=== PATIENT | male | born 1975 | race Caucasian/White ===

== ENCOUNTER 2017-03-09 19:48 | Emergency (ER) | payer BC, OTHER ==
[2017-03-09 20:01] VITALS: BP 142/97
[2017-03-09] MEDS ORDERED: HYDROmorphone 1 MG/ML Syringe IVPUSH ONE (20:21)
[2017-03-09] MEDS ORDERED: Ondansetron 4 MG/2 ML SDV IVPUSH ONE (20:21)
--- NOTE | 2017-03-09 20:29 | EDM.PDOC ---
ED HPI GENERAL MEDICAL PROBLEM - General Chief Complaint: Abdominal Pain Stated Complaint: DIGESTIVE ISSUES Time Seen by Provider: 03/09/17 19:53 Source of Information: Reports: Patient, Family History Limitations: Reports: No Limitations - History of Present Illness INITIAL COMMENTS - FREE TEXT/NARRATIVE: This is a 42-year-old male. 3 days ago onset of some discomfort in the upper abdomen and epigastric region. It seems to have gotten worse and especially today. Yesterday he states he had diarrhea all day but no blood in the diarrhea. Today he doesn't seem to be able to have a bowel movement. He noted today a fever of 102. We will this morning he says he was feeling much better and he had some chicken soup and the pain got much worse. It seemed like the pain comes in waves where it waxes and wanes. When his severe pain he doesn't really have nausea but the nausea seems to be random. He's had no vomiting today. He does have a history of having a workup for pain similar to this about 2 years ago with ultrasound HIDA scans CAT scans scopes and nothing was found. He is a reportable HIDA scan and CT scan done back in 2014 there were apparently normal. Due to the fever but persistent increasing pain and nausea he comes to the ER. He apparently was on vacation and came back 3 days ago where he states he rather drank heavily of alcohol but was not having any problems while he was on vacation. He has no history of pancreatitis. He does have a history however of gastritis and ulcer disease. Middle Abdomen Pain Score (Numeric/FACES): 8 - Related Data Allergies Allergy/AdvReac Type Severity Reaction Status Date / Time No Known Allergies Allergy Verified 03/09/17 19:56 Home Meds: Home Meds Albuterol Sulfate [Proair Respiclick] 1 - 2 puff IH Q4H PRN 06/04/15 [History] Testosterone [Axiron] 1.5 ml TOP ASDIRECTED 09/24/15 [History] ALPRAZolam [Xanax] 0.5 mg PO ASDIRECTED PRN 03/09/17 [History] Acetaminophen [Tylenol Extra Strength] 1,000 mg PO ONCALL PRN 03/09/17 [History] Escitalopram [Lexapro] 10 mg PO DAILY 03/09/17 [History] Pantoprazole Sodium [Protonix] 40 mg PO DAILY #30 suspdr.pkt 03/09/17 [Rx] Past Medical History HEENT History: Reports: Other (See Below) Other HEENT History: seasonal allergies, lip leukplakia, glasses Cardiovascular History: Reports: None Respiratory History: Reports: Asthma Gastrointestinal History: Reports: Other (See Below) Other Gastrointestinal History: elevated LFTs Genitourinary History: Reports: Prostate Disorder, Other (See Below) Other Genitourinary History: hypogonadism, prostate disease 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 Musculoskeletal History: Reports: Other (See Below) Other Musculoskeletal History: L knee pain, R shoulder pain, back strain Neurological History: Reports: None Psychiatric History: Reports: None, Anxiety Hematologic History: Reports: None Immunologic History: Reports: None Oncologic (Cancer) History: Reports: None Dermatologic History: Reports: Other (See Below) Other Dermatologic History: onychomycosis - Infectious Disease History Infectious Disease History: Reports: MRSA - Past Surgical History Head Surgeries/Procedures: Reports: None GI Surgical History: Reports: Colonoscopy, EGD Musculoskeletal Surgical History: Reports: Arthroscopic Knee, Shoulder Surgery Social & Family History - Tobacco Use Smoking Status *Q: Never Smoker Years of Tobacco use: 20 Second Hand Smoke Exposure: No - Alcohol Use Days Per Week of Alcohol Use: 7 Number of Drinks Per Day: 2 Total Drinks Per Week: 14 - Recreational Drug Use Recreational Drug Use: No ED ROS GENERAL - Review of Systems Review Of Systems: See Below Constitutional: Reports: Fever, Chills, Malaise HEENT: Reports: No Symptoms Respiratory: Reports: No Symptoms Cardiovascular: Reports: No Symptoms Endocrine: Reports: No Symptoms GI/Abdominal: Reports: Abdominal Pain, Diarrhea, Decreased Appetite, Nausea. Denies: Black Stool, Bloody Stool, Distension, Vomiting : Denies: Dysuria, Frequency Musculoskeletal: Reports: Other (Mild aching at times) Skin: Reports: No Symptoms Neurological: Reports: No Symptoms Psychiatric: Reports: No Symptoms Hematologic/Lymphatic: Reports: No Symptoms ED EXAM, GI/ABD - Physical Exam Exam: See Below Exam Limited By: No Limitations General Appearance: Alert, WD/WN, No Apparent Distress Ears: Normal External Exam Nose: Normal Inspection Throat/Mouth: Normal Inspection, Normal Lips, Normal Voice Head: Normocephalic Neck: Supple Respiratory/Chest: No Respiratory Distress, Lungs Clear, Normal Breath Sounds Cardiovascular: Regular Rate, Rhythm, No Murmur GI/Abdominal: Other (Patient has a very large abdomen, bowel sounds are decreased but slightly present, there is no lower abdominal tenderness on palpation negative McBurney sign, in the upper abdomen he does not appear to be tender over the right upper quadrant and a negative Barrientos's sign, or is mostly tender is just below the epigastric area and seems to be a line across his upper abdomen, there is no rebound there is no guarding no distention noted there is no left upper quadrant tenderness on palpation) Back Exam: Full Range of Motion Extremities: Normal Inspection, Normal Range of Motion Neurological: Alert, Oriented Psychiatric: Normal Affect, Normal Mood Skin Exam: Warm, Dry Course - Vital Signs Last Recorded V/S: Last Vital Signs Temp 97.7 F 03/09/17 19:58 Pulse 109 H 03/09/17 19:58 Resp 18 03/09/17 19:58 BP 142/97 H 03/09/17 19:58 Pulse Ox 93 L 03/09/17 19:58 - Orders/Labs/Meds Orders: Active Orders 24 hr Category Date Time Status Abdomen Ltd [US] Stat Exams 03/09/17 21:30 Taken Sodium Chloride 0.9% [Normal Saline] 1,000 ml Med 03/09/17 20:30 Active IV ASDIRECTED Sodium Chloride 0.9% [Normal Saline] 1,000 ml Med 03/09/17 21:45 Active IV ASDIRECTED Medication Orders Sodium Chloride (Normal Saline) 1,000 mls @ 1,000 mls/hr IV ASDIRECTED ENRIQUE Last Admin: 03/09/17 20:38 Dose: 1,000 mls/hr Sodium Chloride (Normal Saline) 1,000 mls @ 1,000 mls/hr IV ASDIRECTED ENRIQUE Last Admin: 03/09/17 21:56 Dose: 1,000 mls/hr Labs: Laboratory Tests 03/09/17 03/09/17 Range/Units 20:28 20:28 WBC 9.24 H (4.23-9.07) K/mm3 RBC 5.40 (4.63-6.08) M/mm3 Hgb 16.6 (13.7-17.5) gm/L Hct 49.0 (40.1-51.0) % MCV 90.7 (79.0-92.2) fl MCH 30.7 (25.7-32.2) pg MCHC 33.9 (32.2-35.5) g/dl RDW Std Deviation 43.1 (35.1-43.9) fL Plt Count 167 (163-337) K/mm3 MPV 10.1 (9.4-12.3) fl Neut % (Auto) 76.5 H (34.0-67.9) % Lymph % (Auto) 13.1 L (21.8-53.1) % Tyrrell % (Auto) 10.0 (5.3-12.2) % Eos % (Auto) 0.2 L (0.8-7.0) Baso % (Auto) 0.1 (0.1-1.2) % Neut # (Auto) 7.07 H (1.78-5.38) K/mm3 Lymph # (Auto) 1.21 L (1.32-3.57) K/mm3 Tyrrell # (Auto) 0.92 H (0.30-0.82) K/mm3 Eos # (Auto) 0.02 L (0.04-0.54) K/mm3 Baso # (Auto) 0.01 (0.01-0.08) K/mm3 Sodium 138 (136-145) mEq/L Potassium 3.8 (3.5-5.1) mEq/L Chloride 102 (98-107) mEq/L Carbon Dioxide 27 (21-32) mEq/L Anion Gap 12.8 (5-15) BUN 15 (7-18) mg/dL Creatinine 1.2 (0.7-1.3) mg/dL Est Cr Clr Drug Dosing 84.54 mL/min Estimated GFR (MDRD) > 60 (>60) mL/min BUN/Creatinine Ratio 12.5 L (14-18) Glucose 107 H (74-106) mg/dL Calcium 8.2 L (8.5-10.1) mg/dL Total Bilirubin 0.5 (0.2-1.0) mg/dL AST 25 (15-37) U/L ALT 46 (16-63) U/L Alkaline Phosphatase 69 (46-116) U/L Total Protein 7.2 (6.4-8.2) g/dl Albumin 3.2 L (3.4-5.0) g/dl Globulin 4.0 gm/dL Albumin/Globulin Ratio 0.8 L (1-2) Amylase 49 (25-115) U/L Lipase 107 (73-393) U/L Meds: Medications Generic Name Dose Route Start Last Admin Trade Name Johnq PRN Reason Stop Dose Admin Sodium Chloride 1,000 mls @ 1,000 mls/hr 03/09/17 20:30 03/09/17 20:38 Normal Saline IV 1,000 mls/hr ASDIRECTED ENRIQUE Administration Sodium Chloride 1,000 mls @ 1,000 mls/hr 03/09/17 21:45 03/09/17 21:56 Normal Saline IV 1,000 mls/hr ASDIRECTED ENRIQUE Administration Discontinued Medications Generic Name Dose Route Start Last Admin Trade Name Freq PRN Reason Stop Dose Admin Hydromorphone HCl 0.5 mg 03/09/17 20:21 03/09/17 20:41 Dilaudid IVPUSH 03/09/17 20:22 0.5 mg ONETIME ONE Administration Ondansetron HCl 4 mg 03/09/17 20:21 03/09/17 20:38 Zofran IVPUSH 03/09/17 20:22 4 mg ONETIME ONE Administration Pantoprazole Sodium 40 mg 03/09/17 21:33 03/09/17 21:50 Protonix Iv IVPUSH 03/09/17 21:34 40 mg ONETIME ONE Administration - Radiology Interpretation Free Text/Narrative:: Ultrasound of the upper abdomen revealed no acute findings of the liver gallbladder pancreas. - Re-Assessments/Exams Free Text/Narrative Re-Assessment/Exam: 03/09/17 21:44 Patient is feeling better with the fluids and the medications. I spoke to him regarding the lab results. We'll get an ultrasound of his abdomen looking especially at his pancreas gallbladder and liver. I believe he probably has more of a gastritis possibly an ulcer from his recent vacation and his consumption of alcohol. 03/09/17 23:13 Ultrasound of the upper abdomen limited shows no acute findings. I spoke to the patient regarding this and his test results again I believe he has a gastritis from his alcohol consumption during vacation. I spoke to him about his diet for the next few days as well as avoiding spices citrus and all alcohol the Melvin make a gastritis. Departure - Departure Time of Disposition: : Disposition: Home, Self-Care 01 Condition: good Clinical Impression: Nausea, Epigastric abdominal pain Gastritis Qualifiers: Gastritis type: other gastritis Chronicity: acute Gastritis bleeding: without bleeding Qualified Code(s): K29.00 - Acute gastritis without bleeding Diarrhea Qualifiers: Diarrhea type: unspecified type Qualified Code(s): R19.7 - Diarrhea, unspecified - Discharge Information Prescriptions: Pantoprazole Sodium [Protonix] 40 mg PO DAILY #30 suspdr.pkt Instructions: Gastritis, Adult, [id number] Referrals: Mary Martin PA [Primary Care Provider] - Forms: ED Department Discharge Additional Instructions: Home rest and sleep, he very careful when she would eat over the next 3-4 days, tried to stick to a bland diet, yogurt is very soothing to the stomach, avoid any spices citrus alcohol and sodas, be sure to stay well hydrated water, take Protonics every morning, gentle activity and allow your body to heal over the next 3-4 days, followup with your family doctor later this week, return to the ER if your symptoms worsen - My Orders Last 24 Hours: My Active Orders 03/09/17 20:30 Sodium Chloride 0.9% [Normal Saline] 1,000 ml IV ASDIRECTED 03/09/17 21:30 TwitJump [US] Stat 03/09/17 21:45 Sodium Chloride 0.9% [Normal Saline] 1,000 ml IV ASDIRECTED - Assessment/Plan Last 24 Hours: My Active Orders 03/09/17 20:30 Sodium Chloride 0.9% [Normal Saline] 1,000 ml IV ASDIRECTED 03/09/17 21:30 TwitJump [US] Stat 03/09/17 21:45 Sodium Chloride 0.9% [Normal Saline] 1,000 ml IV ASDIRECTED
[2017-03-09] MEDS ORDERED: Sodium Chloride 0.9% 1,000 ML IV SCH ×2 (20:30→21:45)
[2017-03-09] MEDS ORDERED: Pantoprazole 40 MG Vial IVPUSH ONE (21:33)
--- NOTE | 2017-03-11 07:37 | US ---
Limited abdominal ultrasound: Multiple real-time images were obtained of the upper right abdomen. Comparison: Previous CT abdomen and pelvis exam of 09/24/15. Liver appears to be slightly echogenic compatible with fatty infiltration. Mild focal fatty sparing noted within the right lobe close to the gallbladder. Small echogenic area is identified near the junction of the right and left lobes of the liver measuring about 1.0 cm. This is most likely due to small hemangioma. Neither of these findings is appreciated with certainty on previous CT exam. Visualized pancreas appears unremarkable. Gallbladder shows no gallstones. No gallbladder wall thickening or biliary duct dilatation is seen. Right kidney shows no hydronephrosis or mass. Right kidney measures 12.0 cm in length. Impression: 1. Mild fatty infiltration within the liver with focal fatty sparing being seen. Small hemangioma believed to be present within the liver. Neither of these findings are identified on previous CT examination. 2. Other portions of the right upper quadrant abdominal ultrasound are unremarkable. Diagnostic code #2 I agree with preliminary report issued by [facility] ([facility] report finalized on 03/09/17, 11:46 PM Central Time)
== END 2017-03-09 23:30 | disposition home or self-care (01) ==
LOC: JD.ED 19:48
DX: K29.00 Acute gastritis without bleeding (principal); R19.7 Diarrhea, unspecified; J45.909 Unspecified asthma, uncomplicated; F41.9 Anxiety disorder, unspecified; Z79.899 Other long term (current) drug therapy
CPT/HCPCS: 36415; 76705; 80053; 82150; 83690; 85025; 96361; 96374; 96375; 99284; C9113; J1170; J2405; J7040

== ENCOUNTER 2017-08-22 17:19 | Emergency (ER) | payer BC, OTHER ==
[2017-08-22] MEDS ORDERED: EPINEPHrine 1 MG/ML SDV IM ONE (17:23)
[2017-08-22] MEDS ORDERED: Albuterol 0.083% 2.5 MG/3 ML Neb Soln NEB ONE (17:23)
[2017-08-22] MEDS ORDERED: methylPREDNISolone Sodium Succinate 125 MG/2 ML SDV IVPUSH ONE (17:23)
[2017-08-22] MEDS ORDERED: Sodium Chloride 0.9% 10 ML Syringe FLUSH PRN (17:23)
[2017-08-22] MEDS ORDERED: EPINEPHrine 1 MG/ML SDV ONE (17:28)
[2017-08-22] MEDS ORDERED: methylPREDNISolone Sodium Succinate 125 MG/2 ML SDV ONE (17:28)
[2017-08-22 17:30] VITALS: BP 161/91
--- NOTE | 2017-08-22 17:37 | EDM.PDOC ---
ED HPI GENERAL MEDICAL PROBLEM - General Chief Complaint: Respiratory Problem Stated Complaint: SOB Time Seen by Provider: 08/22/17 17:22 Source of Information: Reports: Patient, Family, RN Notes Reviewed - History of Present Illness INITIAL COMMENTS - FREE TEXT/NARRATIVE: 42-year-old male with sudden onset of wheezing, difficulty breathing, chest tightness about 15 minutes ago. He does have history of asthma but has never had an attack again this past and this hard he 4. He feels extremely difficult for him to breathe. On my arrival to the room he is sitting in a tripod position. He states he did do a neb treatment just prior to arrival. 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 He has not been ill with cough sore throat fever or chills. 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 (see below) Other Treatments COMMODITY BROKER: Pt states I already did a neb and inhalers - Related Data Allergies Allergy/AdvReac Type Severity Reaction Status Date / Time No Known Allergies Allergy Verified 03/09/17 19:56 Home Meds: Home Meds Albuterol Sulfate [Proair Respiclick] 1 - 2 puff IH Q4H PRN 06/04/15 [History] Testosterone [Axiron] 1.5 ml TOP ASDIRECTED 09/24/15 [History] ALPRAZolam [Xanax] 0.5 mg PO ASDIRECTED PRN 03/09/17 [History] Acetaminophen [Tylenol Extra Strength] 1,000 mg PO ONCALL PRN 03/09/17 [History] Escitalopram [Lexapro] 10 mg PO DAILY 03/09/17 [History] Pantoprazole Sodium [Protonix] 40 mg PO DAILY #30 suspdr.pkt 03/09/17 [Rx] Prednisone [IJD: predniSONE] 40 mg PO WITHBREAKFAST #3 tab 08/22/17 [Rx] Past Medical History HEENT History: Reports: Other (See Below) Other HEENT History: seasonal allergies, lip leukplakia, glasses Cardiovascular History: Reports: None Respiratory History: Reports: Asthma Gastrointestinal History: Reports: Other (See Below) Other Gastrointestinal History: elevated LFTs Genitourinary History: Reports: Prostate Disorder, Other (See Below) Other Genitourinary History: hypogonadism, prostate disease 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 Musculoskeletal History: Reports: Other (See Below) Other Musculoskeletal History: L knee pain, R shoulder pain, back strain Neurological History: Reports: None Psychiatric History: Reports: None, Anxiety Hematologic History: Reports: None Immunologic History: Reports: None Oncologic (Cancer) History: Reports: None Dermatologic History: Reports: Other (See Below) Other Dermatologic History: onychomycosis - Infectious Disease History Infectious Disease History: Reports: MRSA - Past Surgical History Head Surgeries/Procedures: Reports: None GI Surgical History: Reports: Colonoscopy, EGD Musculoskeletal Surgical History: Reports: Arthroscopic Knee, Shoulder Surgery Social & Family History - Tobacco Use Smoking Status *Q: Never Smoker Years of Tobacco use: 20 Second Hand Smoke Exposure: No - Alcohol Use Days Per Week of Alcohol Use: 7 Number of Drinks Per Day: 2 Total Drinks Per Week: 14 - Recreational Drug Use Recreational Drug Use: No ED ROS GENERAL - Review of Systems Review Of Systems: See Below Constitutional: Denies: Fever, Chills HEENT: Reports: Throat Swelling (He does have sensation of mild swelling of his throat.). Denies: Throat Pain Respiratory: Reports: Shortness of Breath, Wheezing. Denies: Cough Cardiovascular: Denies: Chest Pain (He is not having chest pain although his chest does feel tight secondary to the difficulty breathing) GI/Abdominal: Denies: Abdominal Pain, Nausea, Vomiting Skin: Denies: Rash Neurological: Reports: No Symptoms ED EXAM, GENERAL - Physical Exam Exam: See Below General Appearance: Alert, Anxious, Moderate Distress Eye Exam: Bilateral Eye: PERRL Throat/Mouth: Normal Inspection, Normal Oropharynx Head: No: Facial Swelling Neck: Supple, Full Range of Motion Respiratory/Chest: Respiratory Distress (Moderate), Wheezing (Moderate). No: Rales, Rhonchi Cardiovascular: Tachycardia Extremities: Normal Inspection, Normal Range of Motion Neurological: Alert, Oriented, No Motor/Sensory Deficits Skin Exam: Warm, Dry, Normal Color, No Rash Course - Vital Signs Last Recorded V/S: Last Vital Signs Temp 97.4 F 08/22/17 17:22 Pulse 100 08/22/17 17:22 Resp 16 08/22/17 17:22 BP 161/91 H 08/22/17 17:22 Pulse Ox 99 08/22/17 17:36 - Orders/Labs/Meds Meds: Medications Discontinued Medications Generic Name Dose Route Start Last Admin Trade Name Freq PRN Reason Stop Dose Admin Albuterol 2.5 mg 08/22/17 17:23 08/22/17 17:34 Proventil Neb Soln NEB 08/22/17 17:24 2.5 mg ONETIME ONE Administration Epinephrine HCl 0.3 mg 08/22/17 17:23 08/22/17 17:26 Adrenalin 1:1000 IM 08/22/17 17:24 0.3 mg ONETIME ONE Administration Epinephrine HCl Confirm 08/22/17 17:28 08/22/17 17:35 Adrenalin 1:1000 Administered 08/22/17 17:29 Not Given Dose 1 mg .ROUTE .STK-MED ONE Methylprednisolone Sodium Succinate 125 mg 08/22/17 17:23 08/22/17 17:27 Solu-Medrol IVPUSH 08/22/17 17:24 125 mg ONETIME ONE Administration Methylprednisolone Sodium Succinate Confirm 08/22/17 17:28 08/22/17 17:35 Solu-Medrol Administered 08/22/17 17:29 Not Given Dose 125 mg .ROUTE .STK-MED ONE Sodium Chloride 10 ml 08/22/17 17:23 08/22/17 17:37 Saline Flush FLUSH 10 ml ASDIRECTED PRN Administration Keep Vein Open - Re-Assessments/Exams Free Text/Narrative Re-Assessment/Exam: 08/22/17 18:26. Patient responded very well to epinephrine 0.3 mg IM given shortly after patient arrival. He also was given one albuterol neb and solumedrol 125 mg IV. His wheezing cleared very quickly after the epinephrine and he continues to rest and breathe comfortably. No wheezing at this time sats are good, he does feel ready for discharge. Discharge instructions as documented Departure - Departure Time of Disposition: 18:23 Disposition: Home, Self-Care 01 Condition: Fair Clinical Impression: Asthma attack Qualifiers: Asthma severity: severe Asthma persistence: unspecified Qualified Code(s): J45.901 - Unspecified asthma with (acute) exacerbation - Discharge Information Prescriptions: Prednisone [IJD: predniSONE] 40 mg PO WITHBREAKFAST #3 tab Instructions: Asthma, Adult, [id number] Forms: ED Department Discharge Additional Instructions: Continue albuterol neb treatments every 4-6 hours as needed for further difficulty breathing, prednisone 40 mg every morning for the next 3 days, follow-up clinic as needed, return to ED as needed if symptoms worsening in any way
== END 2017-08-22 18:34 | disposition home or self-care (01) ==
LOC: JD.ED 17:19
DX: J45.901 Unspecified asthma with (acute) exacerbation (principal); Z79.899 Other long term (current) drug therapy
CPT/HCPCS: 94640; 96372; 96374; 99285; J0171; J2930; J7050; 99284

== ENCOUNTER 2017-10-11 17:32 | Emergency (ER) | payer BC, OTHER ==
[2017-10-11 17:42] VITALS: BP 154/84
[2017-10-11] MEDS ORDERED: Sodium Chloride 0.9% 1,000 ML IV ONE (17:48)
[2017-10-11] MEDS ORDERED: Ondansetron 4 MG/2 ML SDV IVPUSH ONE (17:48)
[2017-10-11] MEDS ORDERED: Sodium Chloride 0.9% 10 ML Syringe FLUSH PRN ×2 (17:48→19:33)
[2017-10-11] MEDS ORDERED: Ketorolac 30 MG/ML SDV IVPUSH ONE (17:48)
--- NOTE | 2017-10-11 17:59 | EDM.PDOC ---
ED HPI GENERAL MEDICAL PROBLEM - General Chief Complaint: Respiratory Problem Stated Complaint: CHEST PAINS,FEVER Time Seen by Provider: 10/11/17 17:49 Source of Information: Reports: Patient History Limitations: Reports: No Limitations - History of Present Illness INITIAL COMMENTS - FREE TEXT/NARRATIVE: 42-year-old male presents for evaluation treatment of chest discomfort and fevers. Reports that his symptoms started about 24 hours ago. Current symptoms include fever, sore throat, cough, headaches and body aches. Reports he is feeling nauseous and has vomited. No diarrhea. Has not taken any medications [id number] for his symptoms, only vitamins. Patient reports he frequently gets pneumonia and feels that he could be possibly developing pneumonia today. Patient states he did not have a thermometer available at home but took this temperate with at thermometer gun and it read 105. This prompted him and his to maria to the ER. Patient reports he did get a flu shot this year. Reports no ill contacts. Chest Pain Score (Numeric/FACES): 8 - Related Data Allergies Allergy/AdvReac Type Severity Reaction Status Date / Time No Known Allergies Allergy Verified 03/09/17 19:56 Home Meds: Home Meds Albuterol Sulfate [Proair Respiclick] 1 - 2 puff IH Q4H PRN 06/04/15 [History] Testosterone [Axiron] 1.5 ml TOP ASDIRECTED 09/24/15 [History] ALPRAZolam [Xanax] 0.5 mg PO ASDIRECTED PRN 03/09/17 [History] Acetaminophen [Tylenol Extra Strength] 1,000 mg PO ONCALL PRN 03/09/17 [History] Escitalopram [Lexapro] 10 mg PO DAILY 03/09/17 [History] Pantoprazole Sodium [Protonix] 40 mg PO DAILY #30 suspdr.pkt 03/09/17 [Rx] Prednisone [IJD: predniSONE] 40 mg PO WITHBREAKFAST #3 tab 08/22/17 [Rx] Oseltamivir [Tamiflu] 75 mg PO BID #9 cap 10/11/17 [Rx] Past Medical History HEENT History: Reports: Other (See Below) Other HEENT History: seasonal allergies, lip leukplakia, glasses Cardiovascular History: Reports: None Respiratory History: Reports: Asthma Gastrointestinal History: Reports: Other (See Below) Other Gastrointestinal History: elevated LFTs Genitourinary History: Reports: Prostate Disorder, Other (See Below) Other Genitourinary History: hypogonadism, prostate disease CAUSTICISER History: Reports: None Musculoskeletal History: Reports: Other (See Below) Other Musculoskeletal History: L knee pain, R shoulder pain, back strain Neurological History: Reports: None Psychiatric History: Reports: None, Anxiety Hematologic History: Reports: None Immunologic History: Reports: None Oncologic (Cancer) History: Reports: None Dermatologic History: Reports: Other (See Below) Other Dermatologic History: onychomycosis - Infectious Disease History Infectious Disease History: Reports: MRSA - Past Surgical History Head Surgeries/Procedures: Reports: None GI Surgical History: Reports: Colonoscopy, EGD Musculoskeletal Surgical History: Reports: Arthroscopic Knee, Shoulder Surgery Social & Family History - Tobacco Use Smoking Status *Q: Current Every Day Smoker Years of Tobacco use: 15 Packs/Tins Daily: 1 Used Tobacco, but Quit: Yes Month Tobacco Last Used: 2001 Second Hand Smoke Exposure: No - Caffeine Use Caffeine Use: Reports: Soda - Alcohol Use Days Per Week of Alcohol Use: 7 Number of Drinks Per Day: 2 Total Drinks Per Week: 14 - Recreational Drug Use Recreational Drug Use: No ED ROS GENERAL - Review of Systems Review Of Systems: See Below Constitutional: Reports: Fever (105 at home with a temp gun), Chills Respiratory: Reports: Cough. Denies: Shortness of Breath, Sputum Cardiovascular: Reports: Chest Pain (associated with coughing) GI/Abdominal: Reports: Nausea, Vomiting. Denies: Abdominal Pain, Diarrhea Musculoskeletal: Reports: Neck Pain ("tightness"), Back Pain Neurological: Reports: Headache ED EXAM, GENERAL - Physical Exam Exam: See Below Exam Limited By: No Limitations General Appearance: Alert, WD/WN, Mild Distress, Obese Eye Exam: Bilateral Eye: Normal Inspection Ears: Normal External Exam, Normal Canal, Hearing Grossly Normal, Normal TMs Nose: Normal Inspection Throat/Mouth: Normal Inspection, Normal Oropharynx, Normal Voice, No Airway Compromise Head: Atraumatic, Normocephalic Neck: Normal Inspection, Supple, Non-Tender, Full Range of Motion, Other (no nuchal ridgity) Respiratory/Chest: No Respiratory Distress, Lungs Clear, Normal Breath Sounds Cardiovascular: Normal Peripheral Pulses, Regular Rate, Rhythm, No Murmur GI/Abdominal: Soft, Non-Tender Neurological: Alert, Oriented, Normal Cognition Psychiatric: Normal Affect, Normal Mood Skin Exam: Diaphoretic, Increased Warmth Course - Vital Signs Last Recorded V/S: Last Vital Signs Temp 36.9 C 10/11/17 20:00 Pulse 111 H 10/11/17 17:41 Resp 20 10/11/17 17:41 BP 154/84 H 10/11/17 17:41 Pulse Ox 97 10/11/17 17:41 - Orders/Labs/Meds Labs: Laboratory Tests 10/11/17 10/11/17 10/11/17 Range/Units 18:22 18:25 18:25 WBC 9.74 H (4.23-9.07) K/mm3 RBC 5.16 (4.63-6.08) M/mm3 Hgb 15.7 (13.7-17.5) gm/L Hct 46.5 (40.1-51.0) % MCV 90.1 (79.0-92.2) fl MCH 30.4 (25.7-32.2) pg MCHC 33.8 (32.2-35.5) g/dl RDW Std Deviation 42.6 (35.1-43.9) fL Plt Count 160 L (163-337) K/mm3 MPV 10.4 (9.4-12.3) fl Neutrophils % (Manual) 80 H (40-60) % Band Neutrophils % 0 (0-10) % Lymphocytes % (Manual) 10 L (20-40) % Atypical Lymphs % 0 % Monocytes % (Manual) 9 (2-10) % Eosinophils % (Manual) 1 (0.8-7.0) % Basophils % (Manual) 0 L (0.2-1.2) Platelet Estimate Adequate RBC Morph Comment Normal Sodium 138 (136-145) mEq/L Potassium 3.8 (3.5-5.1) mEq/L Chloride 103 (98-107) mEq/L Carbon Dioxide 25 (21-32) mEq/L Anion Gap 13.8 (5-15) BUN 17 (7-18) mg/dL Creatinine 1.3 (0.7-1.3) mg/dL Est Cr Clr Drug Dosing 78.04 mL/min Estimated GFR (MDRD) > 60 (>60) mL/min BUN/Creatinine Ratio 13.1 L (14-18) Glucose 120 H (74-106) mg/dL Calcium 8.4 L (8.5-10.1) mg/dL Total Bilirubin 0.5 (0.2-1.0) mg/dL AST 46 H (15-37) U/L ALT 64 H (16-63) U/L Alkaline Phosphatase 59 (46-116) U/L C-Reactive Protein 2.1 H* (<1.0) mg/dL Total Protein 6.5 (6.4-8.2) g/dl Albumin 3.3 L (3.4-5.0) g/dl Globulin 3.2 gm/dL Albumin/Globulin Ratio 1.0 (1-2) Urine Color (Yellow) Urine Appearance (Clear) Urine pH (5.0-8.0) Ur Specific [place] (1.005-1.030) Urine Protein (Negative) Urine Glucose (UA) (Negative) Urine Ketones (Negative) Urine Occult Blood (Negative) Urine Nitrite (Negative) Urine Bilirubin (Negative) Urine Urobilinogen (0.2-1.0) Ur Leukocyte Esterase (Negative) Urine RBC (0-5) /hpf Urine WBC (0-5) /hpf Ur Epithelial Cells (0-5) /hpf Urine Bacteria (FEW) /hpf Urine Mucus (FEW) /hpf Monoscreen Negative (NEGATIVE) 10/11/17 Range/Units 20:10 WBC (4.23-9.07) K/mm3 RBC (4.63-6.08) M/mm3 Hgb (13.7-17.5) gm/L Hct (40.1-51.0) % MCV (79.0-92.2) fl MCH (25.7-32.2) pg MCHC (32.2-35.5) g/dl RDW Std Deviation (35.1-43.9) fL Plt Count (163-337) K/mm3 MPV (9.4-12.3) fl Neutrophils % (Manual) (40-60) % Band Neutrophils % (0-10) % Lymphocytes % (Manual) (20-40) % Atypical Lymphs % % Monocytes % (Manual) (2-10) % Eosinophils % (Manual) (0.8-7.0) % Basophils % (Manual) (0.2-1.2) Platelet Estimate RBC Morph Comment Sodium (136-145) mEq/L Potassium (3.5-5.1) mEq/L Chloride (98-107) mEq/L Carbon Dioxide (21-32) mEq/L Anion Gap (5-15) BUN (7-18) mg/dL Creatinine (0.7-1.3) mg/dL Est Cr Clr Drug Dosing mL/min Estimated GFR (MDRD) (>60) mL/min BUN/Creatinine Ratio (14-18) Glucose (74-106) mg/dL Calcium (8.5-10.1) mg/dL Total Bilirubin (0.2-1.0) mg/dL AST (15-37) U/L ALT (16-63) U/L Alkaline Phosphatase (46-116) U/L C-Reactive Protein (<1.0) mg/dL Total Protein (6.4-8.2) g/dl Albumin (3.4-5.0) g/dl Globulin gm/dL Albumin/Globulin Ratio (1-2) Urine Color Yellow (Yellow) Urine Appearance Clear (Clear) Urine pH 6.0 (5.0-8.0) Ur Specific [place] 1.025 (1.005-1.030) Urine Protein Negative (Negative) Urine Glucose (UA) Negative (Negative) Urine Ketones Negative (Negative) Urine Occult Blood Negative (Negative) Urine Nitrite Negative (Negative) Urine Bilirubin Negative (Negative) Urine Urobilinogen 0.2 (0.2-1.0) Ur Leukocyte Esterase Negative (Negative) Urine RBC Not seen (0-5) /hpf Urine WBC Not seen (0-5) /hpf Ur Epithelial Cells 0-5 (0-5) /hpf Urine Bacteria Not seen (FEW) /hpf Urine Mucus Not seen (FEW) /hpf Monoscreen (NEGATIVE) Meds: Medications Discontinued Medications Generic Name Dose Route Start Last Admin Trade Name Freq PRN Reason Stop Dose Admin Sodium Chloride 1,000 mls @ 999 mls/hr 10/11/17 17:48 10/11/17 18:18 Normal Saline IV 10/11/17 18:48 999 mls/hr ONETIME ONE Administration Sodium Chloride 100 mls @ 80 mls/hr 10/11/17 19:45 10/11/17 20:05 Normal Saline IV 80 mls/hr ASDIRECTED ENRIQUE Administration Iopamidol 100 ml 12/22/17 19:33 10/11/17 20:04 Isovue-370 (76%) IVPUSH 10/11/17 19:34 50 ml ONETIME ONE Administration Iopamidol 50 ml 10/11/17 19:33 10/11/17 20:05 Isovue-370 (76%) IVPUSH 10/11/17 19:34 50 ml ONETIME ONE Administration Ketorolac Tromethamine 30 mg 10/11/17 17:48 10/11/17 18:17 Toradol IVPUSH 10/11/17 17:49 30 mg ONETIME ONE Administration Ondansetron HCl 4 mg 10/11/17 17:48 10/11/17 18:17 Zofran IVPUSH 10/11/17 17:49 4 mg ONETIME ONE Administration Oseltamivir Phosphate 75 mg 10/11/17 21:37 10/11/17 21:51 Tamiflu PO 10/11/17 21:38 75 mg ONETIME ONE Administration Sodium Chloride 10 ml 10/11/17 17:48 10/11/17 18:18 Saline Flush FLUSH 10 ml ASDIRECTED PRN Administration Keep Vein Open Sodium Chloride 10 ml 10/11/17 19:33 10/11/17 20:05 Saline Flush FLUSH 10 ml ONETIME PRN Administration IV FLUSH - Radiology Interpretation Free Text/Narrative:: chest xray shows no acute intrathorcic process. Reviewed by myself and Dr. Pendleton. CT of the chest with IV contrast impression per [facility]: Normal chest Ct. No evidence of acute PE. - Re-Assessments/Exams Free Text/Narrative Re-Assessment/Exam: 10/11/17 19:29 Influenza returned negative. Review of the lab results with the patient. He continues to report a severe headache. He has tightness in his neck and his back. Will obtain a mono and strep. Discussed the case with Dr. Pendleton. Will obtain CT to koby out pneumonia not seen on xray as well as PE. 10/11/17 21:37 strep is negative mono is negative Discussed the results with the patient. I do feel like he has influenza. He likely had a false positive. will start him on Tamiflu. He is instructed to return to ER if his symptoms change or worsen. Departure - Departure Time of Disposition: 21:38 Disposition: Home, Self-Care 01 Condition: Fair Clinical Impression: Influenza - Discharge Information Prescriptions: Oseltamivir [Tamiflu] 75 mg PO BID #9 cap Instructions: Influenza, Adult, [id number] Referrals: Mary Martin PA [Primary Care Provider] - Forms: ED Department Discharge, ED Return to Work/School Form Additional Instructions: tamiflu 1 cap PO bid x 5 days. First dose given in ED . Start your Rx tomorrow. [id number] Tylenol or Motrin seen for pain relief. Make sure you are drinking plenty fluids. Follow-up with your primary care provider next week for recheck of your symptoms. Please return to ER if your symptoms change or worsen.
[2017-10-11] MEDS ORDERED: Iopamidol 755 MG/ML 50 ML Bottle IVPUSH ONE (19:33)
[2017-10-11] MEDS ORDERED: Iopamidol 755 Mg/ML 100 ML Bottle IVPUSH ONE (19:33)
[2017-10-11] MEDS ORDERED: Sodium Chloride 0.9% 100 ML IV SCH (19:45)
[2017-10-11] MEDS ORDERED: Oseltamivir 75 MG Cap PO ONE (21:37)
--- NOTE | 2017-10-15 08:00 | CT ---
CT chest Technique: Multiple axial sections were obtained from above the lung apices inferiorly through the lung bases. Intravenous contrast was utilized. Study has been performed as a pulmonary angiogram protocol. Comparison: Prior chest x-ray of 10/11/17 at time 5:47 PM Findings: Pulmonary arteries are well opacified. No filling defects are seen to indicate pulmonary embolism. Mediastinum and hilar regions show no adenopathy or mass. Small mediastinal and axillary lymph nodes are seen which are felt to be within normal limits. No coronary artery calcification is seen. No pericardial thickening is seen. Small portion of the visualized upper abdominal structures are within normal limits. Lungs are clear. No pleural effusions or pneumothorax is seen. Bone window settings were reviewed which appear within normal limits for the patient's age. Impression: 1. No findings of pulmonary embolism. Other portions of the CT study of the chest performed as a pulmonary angiogram protocol appear within normal limits. Diagnostic code #1 I agree with preliminary report issued by [facility] ([facility] report finalized on 10/11/17, 9:19 PM Central Time)
--- NOTE | 2017-10-15 08:00 | CR ---
Chest: Two views of the chest were obtained. Comparison: Prior chest x-ray of 09/29/10. Heart size and mediastinum are normal. Lungs are clear. Bony structures are unremarkable for the patient's age. Impression: 1. Nothing acute is identified on two-view chest x-ray. Diagnostic code #1
== END 2017-10-11 21:57 | disposition home or self-care (01) ==
LOC: JD.ED 17:32
DX: J11.1 Influenza due to unidentified influenza virus with other respiratory manifestations (principal); J45.909 Unspecified asthma, uncomplicated; F17.210 Nicotine dependence, cigarettes, uncomplicated; Z79.899 Other long term (current) drug therapy
CPT/HCPCS: 36415; 71020; 71275; 80053; 81001; 85025; 86140; 86308; 87081; 87430; 87804; 96361; 96374; 96375; 99285; A9270; J1885; J2405; J7030; J7040; J7050; Q9967; 99284